=== PATIENT | female | born 1955 | race Caucasian/White ===

== ENCOUNTER → 2021-03-25 13:11 | Outpatient (CLI) | payer OTHER, SELFPAY ==
--- NOTE | 2021-03-25 13:13 | MRI_ITS ---
MR Pelvis Female WO/W Contrast 03/25/2021 1:57 PM COMPARISON: None CLINICAL HISTORY: recurrent ovarian cancer, eval extent of disease, ? RECTAL INVASION FROM MASS; hx prior hysterectomy TECHNIQUE: Multiplanar T1 and T2 weighted, and dynamic post-gadolinium images were obtained through the pelvis. 15 cc of IV Dotarem was given. FINDINGS: Bladder: Unremarkable Reproductive organs: Status post hysterectomy and bilateral salpingo-oophorectomy. In the right adnexa there is infiltrating and enhancing soft tissue measuring approximately 4.4 x 3.1 cm. The mass is contiguous with the vaginal stump and invades the right lateral wall of the rectum. Lymphadenopathy: Absent Ascites: Absent Bones: There is distention of the symphysis pubis joint due to 3.3 x 2.5 cm rim-enhancing fluid collection. There are erosive changes of the symphysis pubis. MRI/Pelvis W/WO Contrast IMPRESSION: Findings concerning for recurrent right ovarian cancer with slight local invasion of the right lateral rectal wall. No suspicious lymphadenopathy. 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 Electronically Signed: Joseph Serrano MD at 17:28 EST Tel , Service support ,
[2021-03-25 13:50] LABS: CREATININE FINGERSTICK 1.2 mg/dL (0.55-1.02)
[2021-03-29 12:46] LABS: Creatinine, Serum 0.98 mg/dL (0.55-1.02); EST Glomerular Filtration Rate 61 mL/min (>60); Est Glom Filt Rate - Afr Amer 74 mL/min (>60)
== END ==
PROVIDERS: Referring Provider Student in an Organized Health Care Education/Training Program; Visit Provider Student in an Organized Health Care Education/Training Program
DX: C56.9 Malignant neoplasm of unspecified ovary (principal)
CPT/HCPCS: 72197; 82565; A9575; A4216

== ENCOUNTER 2021-04-02 09:00 | Outpatient (CLI) | payer OTHER, SELFPAY ==
[2021-04-02] VITALS (8 sets, daily range): BP systolic 113–184; BP diastolic 65–104; PULSE 68–86; RESP 14–22; TEMP 36.4; O2SAT 96–100; BMI 30.1
--- NOTE | 2021-04-02 | ASPIGT_PTH ---
PATIENT: ART MATAMOROS LOC: CT U#:[id number] AGE/SX: 65/F ROOM: RE04/02/[address]: Dr. Nas Sánchez DO : 1955 BED: DIS: 04/02/2021 SPEC #: [id number] RECD: 04/02/21 11:31 STATUS: ANANYA KODI #: [id number] KESHAWN: 04/02/21 00:[address]: Nas Sánchez DEPT: SURGICAL PATHOLOGY RECD BY: Beth Stafford ENTERED: 04/02/21 11:31 SP TYPE: ASP RAD OT DR: No Primary Care Phys Tissues: Pelvis, NOS Procedures: FNA Specimen Adequacy Special Stain Group II Surgery Specimen Level IV Imprint (control) HEADER OPERATION: CT-guided sampling of pubic symphysis PRE-OP DIAGNOSIS: Abnormal MRI of pelvis TISSUE SUBMITTED: Pubic symphysis 18-gauge core x6 MICROSCOPIC DIAGNOSIS Soft tissue of pubic symphysis, biopsy: Benign fibrocollagenous tissue. See comment. AM:go 04/05/2021 COMMENT The specimen is evaluated at the time of biopsy by Dr. Phillips. Immediate Evaluation = Negative for malignant cells. Immunohistochemistry ([id number]) supports the above diagnosis. This case was discussed with Princses Galeano 04/05/[address] Starr. Case has been reviewed in consultation with Dr. Phillips who concurs with the above diagnosis. IDC:[email or web address] MICROSCOPIC DESCRIPTION Slides are reviewed. GROSS DESCRIPTION Received in fixative is one container labeled with the patient's name and designated pubic symphysis. The specimen consists of multiple irregular fragments of zelaya soft tissue that in aggregate measure 1.5 x 0.2 x 0.1 cm. The specimen is totally submitted in one cassette. Two touch imprints are prepared at the time of core biopsy. / BRIJESH:go 04/02/2021 TC:5 CPT: 64291, 80645
--- NOTE | 2021-04-02 | IMM_PTH ---
PATIENT: ART MATAMOROS LOC: CT U#:[id number] AGE/SX: 65/F ROOM: RE04/02/[address]: Dr. Nas Sánchez DO : 1955 BED: DIS: 04/02/2021 SPEC #: [id number] RECD: 04/05/21 12:38 STATUS: ANANYA REQ #: [id number] KESHAWN: 04/02/21 00:[address]: Nas Sánchez DEPT: IMMUNOHISTOCHEMISTRY RECD BY: Rivka Fontanez ENTERED: 04/05/21 12:39 SP TYPE: IMMUNO OTHR DR: No Primary Care Phys Tissues: Symphysis pubis Procedures: SMA (add) CA-125 (add) Ki Ret (add) CD31 (add) CD34 (add) CEA (add) DESMIN (add) RODRÍGUEZ (add) MACRO (add) Vimentin (add) SMM (add) FACTOR VIII (add) NEUROFIL (add) Pankeratin (initial) MELAN-A (add) S-100 (add) PHYSICIAN & INSTITUTION [address] [address] SPECIMEN INFORMATION: Tissue Source: Pubic symphysis Clinical Info: Abnormal MRI of pelvis Specimen Number: [id number] CPT code: 15481, 51338 x15 METHODOLOGY: Deparaffinized sections of prefer/formalin-fixed tissue or PAP/DQ stained slides are incubated with monoclonal/polyclonal antibodies/oligonucleotide probes. Localization is made via biotin free immunoperoxidase method. Appropriate controls are performed and reacted as expected. Results on target cell population are indicated in the following table: RESULTS: ANTIBODY / CLONE RESULT AE1-3 (AE1/AE3/PCK26) negative Vimentin (V9) positive CD31 (DORA/70A) negative Factor VIII (R Ag) negative CD34 (QBEnd-10) negative Macro (HAM-56) negative Actin (1A4) negative Myosin (simms1) negative Desmin (CE-R-11) negative Melan A (A103) negative S-100 (4C4.9) negative Neurofil (2F11) negative CALRET (polyclonal) negative RODRÍGUEZ (E29) negative CEA (11-7/TF-3HB-1) negative CA125 (OC125) negative These tests were developed and their performance characteristics determined by [facility]. They may not have been cleared or approved by the U.[place]. Food and Drug Administration. The FDA has determined that such clearance or approval is not necessary. The above immunohistochemical/dualISH markers are ordered and reviewed by the Pathologist. INTERPRETATION: Pubic symphysis, CT-guided core biopsy: Benign fibrocollagenous tissue. No evidence of carcinoma. AM:go 04/06/2021
--- NOTE | 2021-04-02 09:05 | CT_ITS ---
PROCEDURE: CT GUIDED biopsy of the symphysis pubis. DATE: 04/02/2021. INDICATION: Female, 65 years old. Lytic lesion in the symphysis. PHYSICIAN: Seven Wade M.D. RADIATION DOSAGE (If Supplied By Facility): CTDIvol = ( 13 ) mGy, DLP = ( 410.51 ) mGycm. Individualized dose acquisition techniques were utilized. PROCEDURE: The risks, benefits, and alternatives to the procedure were explained to the patient. The specific risk of hemorrhage requiring further treatment or intervention was detailed and accepted. Follow-up instructions were discussed with the patient as well. Written informed consent was obtained. The patient was brought into the CT suite and placed in the supine position. The abnormality in the symphysis pubis was identified.. An appropriate entry site was identified. The overlying skin was prepped and draped in the usual sterile fashion. 1% lidocaine was administered subcutaneously for local anesthesia. Conscious sedation was performed. The patient received 3 mg of VERSED and 75 mcg of FENTANYL intravenously. The patient was independently monitored by the department nurse. Conscious sedation was started on 10:19 AM and terminated at 10:[address] guidance, a total of 6 passes were performed utilizing an 18-gauge core biopsy needle system. The specimens were then placed in the appropriate fluid and transported to the laboratory for analysis. Hemostasis was obtained. The patient tolerated the procedure well without immediate complications. Conscious sedation protocol was followed. CT/Biopsy/Inj or Needle Placement IMPRESSION: Successful CT guided biopsy of the symphysis pubis., as described above. Conscious sedation protocol was followed. Electronically Signed: Seven Wade MD at 11:15 EST , Service support ,
[2021-04-02 09:38] LABS: Platelet Count 392 K/mm3 (150-450)
[2021-04-02 09:49] LABS: International Normalized Ratio 0.9; Prothrombin Time (Protime)PT. 11.8 SECONDS (11.7-14.9)
[2021-04-02 09:50] LABS: Partial Thromboplast Time 32.9 Seconds (24.1-36.2)
[2021-04-02] MEDS: Midazolam 2 MG/2 ML Syringe IV ×2 (10:19→10:38)
[2021-04-02] MEDS: fentaNYL 100 MCG/2 ML Ampul IV ×2 (10:19→10:38)
[2021-04-02] MEDS: Lidocaine 2% (20 ml mdv) 20 ML Vial INFILT (10:25)
== END 2021-04-02 23:59 | disposition home or self-care (01) ==
LOC: CT 09:03
PROVIDERS: Referring Provider Student in an Organized Health Care Education/Training Program; Visit Provider Student in an Organized Health Care Education/Training Program
DX: D16.8 Benign neoplasm of pelvic bones, sacrum and coccyx (principal); I10 Essential (primary) hypertension; Z79.899 Other long term (current) drug therapy
CPT/HCPCS: 20206; 36415; 77012; 85049; 85610; 85730; 88172; 88305; 88313; 88341; 88342; 99156; J7040; A4216

== ENCOUNTER → 2024-02-15 | Outpatient (CLI) | payer MEDICARE, OTHER, SELFPAY ==
--- NOTE | 2024-02-15 14:41 | CT_ITS ---
STUDY: CT CHEST, ABDOMEN T PELVIS WITH CONTRAST REASON FOR EXAM: Female, 68 years old. Known ovarian cancer, restaging RADIATION DOSAGE (If Supplied By Facility): CTDIvol = ( 12.30 ) mGy, DLP = ( 1058.99 ) mGycm TECHNIQUE: Transaxial imaging was performed following intravenous administration of Oral and amp; IV Readi-CAT and amp; 100mL Isovue-300. Oral contrast also administered. Multiplanar coronal and sagittal images were reformatted. Individualized dose optimization techniques were used for this CT. COMPARISON: 11/26/2022 FINDINGS: CHEST Lung windows show the lungs to be normally expanded. The previously described noncalcified nodular densities in both lung melgar still persist and now there are many more new suspicious noncalcified nodules scattered throughout both lung melgar too numerous to count. This is consistent with progression/worsening of lung metastasis. The largest noncalcified nodule is in the right cardiophrenic angle measuring 3.9 x 4.7 cm increased from 1 cm on the previous study. Soft tissue windows show the heart size to be normal, there are calcified coronary vessels. A right subclavian port tip is in the distal SVC. In addition to the progression of the pulmonary nodules, there is also been a significant worsening of mediastinal lymph nodes. There are now multiple suspicious bulky lymph nodes largest is in the AP window projecting anterior to the trachea and posterior to the descending aorta. This bulky soft tissue mass measures 5.03 x 3.70 cm not present on the previous study. There are also new perihilar lymph nodes measuring up to 1.2 cm in short axis dimension. Degenerative bony changes again noted with stable sclerotic metastasis noted in the T12, T11, T8 and T5 vertebral bodies. A previously noted retrocardiac hiatal hernia has increased in size and there is likely associated lymphadenopathy along the left lateral aspect of the hiatal hernia. ABDOMEN Liver also demonstrates suspicious peripherally enhancing lesions suggestive of metastasis that were not present on the previous study. The largest is in the right lobe measuring approximately 3.5 x 3.1 cm on axial image 98. Normal gallbladder and extrahepatic biliary system. Normal spleen. Normal pancreas. Normal bilateral adrenal glands. The right kidney is again noted to be atrophic and contains a JJ stent. Left kidney is free of obstructive uropathy or suspicious solid renal lesion The body and distal stomach are unremarkable. Small bowel loops are unremarkable, there is retained stool noted in the colon, there is nonspecific thickening of the distal sigmoid and rectal area likely due to previous radiation therapy. There is diffuse atherosclerotic calcification of the abdominal aorta, without a demonstrated aneurysm. Normal inferior vena cava. Normal retroperitoneum. Induration of the anterior subcutaneous fat within the pelvis consistent with postsurgical change. There is also induration of the pelvic fat and diffuse bladder wall thickening which I suspect is also likely due to previous radiation therapy. Projecting between the inferior bladder and the rectum is a well-defined thick-walled fluid collection containing air suspicious for abscess measuring 1.4 x 2.2 x 2.0 cm best seen on axial image 91 and coronal recon image 65. There are diffuse degenerative changes of the visualized lumbar spine, and pelvis. PELVIS There is no pelvic lymphadenopathy There is diffuse atherosclerotic calcification of the pelvic arteries. CT/CT Chest, Abd, Pel w/Contrast IMPRESSION: Progression/worsening of diffuse pulmonary metastasis. Previously described noncalcified nodular densities have either changed or become larger since the previous study and there is significant increase in noncalcified nodular densities scattered in both lung melgar. Progression/worsening of mediastinal and hilar adenopathy since the previous study Previously noted retrocardiac hiatal hernia is increased in size, I suspect there is also some new adenopathy in the GE junction region New suspicious enhancing lesion within the right lobe of consistent with metastasis. No free intraperitoneal fluid, air, or suspicious mesenteric or retroperitoneal adenopathy Stable atrophy of the right kidney which contains a JJ stent Induration of the pelvic fat and subcutaneous fat within the anterior pelvis likely due to previous surgery and radiation therapy Diffuse thickening of the bladder also likely due to previous radiation therapy. Well-defined thick-walled fluid collection projecting between the inferior bladder and rectum containing air suspicious for pelvic abscess. Surgical consultation recommended Nonspecific thickening of the distal sigmoid colon and proximal rectum also likely due to previous radiation therapy Degenerative bony changes with sclerotic changes in the thoracic spine suspicious for metastasis. No suspicious new sclerotic or erosive lesion within the lumbar spine or pelvis Stable degenerative changes in the symphysis pubis Electronically Signed: Colin Lagos MD at 9:35 EST ,
[2024-02-15] MEDS: 0.9 % NaCl (Sterile) Posiflush 10 mL IV (15:26)
== END | disposition home or self-care (01) ==
LOC: CT 14:37
PROVIDERS: Referring Provider Nurse Practitioner Family; Visit Provider Nurse Practitioner Family
DX: C56.9 Malignant neoplasm of unspecified ovary (principal); C78.6 Secondary malignant neoplasm of retroperitoneum and peritoneum; C78.01 Secondary malignant neoplasm of right lung; C78.02 Secondary malignant neoplasm of left lung; C79.51 Secondary malignant neoplasm of bone
CPT/HCPCS: 71260; 74177; Q9967; A4216

== ENCOUNTER 2024-07-10 12:59 | Outpatient (CLI) | payer MEDICARE, OTHER, SELFPAY ==
[2024-07-10] MEDS: 0.9% Normal Saline (1000mL) 1,000 ML 999 ML IV (13:24)
[2024-07-10 13:28] VITALS: BP 94/56; PULSE 98; RESP 16; TEMP 36.1; O2SAT 99
[2024-07-10 13:47] LABS: Absolute Lymphocyte Count 0.38 X10^3/uL (0.83-4.51); Basophil# 0.02 X10^3/uL; Basophil% 0.2 % (0-1); Eosinophil# 0.24 X10^3/uL; Eosinophils% 2.6 % (0-5); Hematocrit 26.7 % (37-47); Lymphocyte # 0.38 X10^3/ul (0.83-4.51); Mean Corp Hgb Conc 33.7 g/dL (32-36); Mean Corpuscular Hgb 33.8 pg (27.0-32.0); Mean Corpuscular Volume 100.4 fL (81-99); Mean Platelet Vol. 9.1 fl (6.2-12.0); Monocyte# 0.53 X10^3/uL; Monocyte% 5.6 % (0-10); NRBC Flagged by Analyzer 0.2 % (0-5); Neutrophil % 85.2 % (47-70); POSITIVE DIFFERENTIAL YES; POSITIVE MORPHOLOGY YES; Platelet Count 341 K/mm3 (150-450); RBC Distribution Width CV 18.9 % (11.6-14.6); RBC Distribution Width SD 68.5 fl (35.1-43.9); Red Blood Count 2.66 M/mm3 (4.2-5.4); White Blood Count 9.4 K/mm3 (4.4-11.0)
[2024-07-10 13:50] LABS: Differential Indicated SCAN CRITERIA MET
[2024-07-10 14:18] LABS: Anion Gap 11 (5-15); BUN 22 mg/dL (4-19); Calcium,Total 9.3 mg/dL (7.6-11.0); Carbon Dioxide 21.9 mmol/L (21.0-32.0); Chloride 97 mmol/L (98-108); Creatinine, Serum 0.78 mg/dL (0.70-1.20); EST Glomerular Filtration Rate 83 (>60); Glucose 146 mg/dL (70-99); Sodium Level 130 mmol/L (133-145)
[2024-07-10 14:32] VITALS: BP 97/60; PULSE 73; RESP 16; TEMP 36.2; O2SAT 94
[2024-07-10 14:46] LABS: Anisocytosis 1+
== END 2024-07-10 23:59 | disposition home or self-care (01) ==
DX: C56.2 Malignant neoplasm of left ovary (principal)
CPT/HCPCS: 96360; 36415; 36591; 80048; 85025; A4216

== ENCOUNTER 2024-07-17 13:42 | Outpatient (CLI) | payer MEDICARE, OTHER, SELFPAY ==
[2024-07-17] MEDS: 0.9% Normal Saline (1000mL) 1,000 ML 999 ML IV (14:03)
[2024-07-17 14:05] VITALS: BP 95/59; PULSE 102; RESP 16; TEMP 36.1; O2SAT 100; BMI 26.3
[2024-07-17 14:16] LABS: Absolute Lymphocyte Count 0.39 X10^3/uL (0.83-4.51); Absolute Neutrophil Count 7.4 X10^3/uL (2.0-7.7); Basophil# 0.03 X10^3/uL; Basophil% 0.3 % (0-1); Eosinophil# 0.17 X10^3/uL; Eosinophils% 1.9 % (0-5); Hematocrit 26.7 % (37-47); Hemoglobin 8.7 g/dL (12.0-15.0); Lymphocyte # 0.39 X10^3/ul (0.83-4.51); Lymphocyte % 4.4 % (19-41); Mean Corp Hgb Conc 32.6 g/dL (32-36); Mean Corpuscular Hgb 33.6 pg (27.0-32.0); Mean Corpuscular Volume 103.1 fL (81-99); Mean Platelet Vol. 8.7 fl (6.2-12.0); Monocyte# 0.76 X10^3/uL; Monocyte% 8.6 % (0-10); NRBC Flagged by Analyzer 0 % (0-5); Neutrophil # 7.38 X10^3/uL (2.7-7.7); Neutrophil % 83.8 % (47-70); POSITIVE DIFFERENTIAL YES; POSITIVE MORPHOLOGY YES; Platelet Count 431 K/mm3 (150-450); RBC Distribution Width CV 19.8 % (11.6-14.6); RBC Distribution Width SD 73.7 fl (35.1-43.9); Red Blood Count 2.59 M/mm3 (4.2-5.4); White Blood Count 8.8 K/mm3 (4.4-11.0)
[2024-07-17 14:17] LABS: Differential Indicated SCAN CRITERIA MET
[2024-07-17 14:38] LABS: Anion Gap 12 (5-15); BUN 20 mg/dL (4-19); BUN/Creat Ratio 29.4 RATIO (10-20); Calcium,Total 9.2 mg/dL (7.6-11.0); Carbon Dioxide 19.7 mmol/L (21.0-32.0); Chloride 102 mmol/L (98-108); Creatinine, Serum 0.67 mg/dL (0.70-1.20); EST Glomerular Filtration Rate 95 (>60); Glucose 112 mg/dL (70-99); Potassium 4.5 mmol/L (3.3-5.1); Sodium Level 133 mmol/L (133-145)
[2024-07-17 14:53] LABS: Anisocytosis 1+
[2024-07-17 14:54] LABS: Polychromasia RARE
[2024-07-17 15:20] VITALS: BP 100/60; PULSE 68; RESP 16; TEMP 36.4; O2SAT 96
[2024-07-17 23:37] LABS: Xtra Tube EP Lab EXTRA TUBE
[2024-07-19 11:29] LABS: AST(SGOT) 15 U/L (<=31); Alanine Aminotransfer ALT/SGPT 9 U/L (<=34); Albumin, Serum 3.4 g/dL (3.4-4.8); Alkaline Phosphatase 99 U/L (35-104); Globulin 2.4 g/dL (2.2-4.2); Protein, Total 5.8 g/dL (5.9-8.4); Total Bilirubin 0.16 mg/dL (0.00-1.30)
== END 2024-07-17 23:59 | disposition home or self-care (01) ==
LOC: MEDOUTP 13:42
DX: C56.2 Malignant neoplasm of left ovary (principal); Z45.2 Encounter for adjustment and management of vascular access device
CPT/HCPCS: 96360; 80048; 80076; 85025; 96523; A4216

== ENCOUNTER 2024-07-31 10:34 | Outpatient (CLI) | payer MEDICARE, OTHER, SELFPAY ==
[2024-07-31] MEDS: 0.9% Normal Saline (1000mL) 1,000 ML 999 ML IV (10:44)
[2024-07-31 10:50] VITALS: BP 96/57; PULSE 53; RESP 14; TEMP 36.1; O2SAT 97; BMI 27.1
[2024-07-31] MEDS: 0.9% NaCl Peripheral Flush Adult IV (11:58)
[2024-07-31 12:01] VITALS: BP 94/55; PULSE 90; RESP 16
== END 2024-07-31 23:59 | disposition home or self-care (01) ==
LOC: MEDOUTP 10:35
DX: C56.9 Malignant neoplasm of unspecified ovary (principal)
CPT/HCPCS: 96360; A4216

== ENCOUNTER 2024-08-07 12:34 | Outpatient (CLI) | payer MEDICARE, OTHER, SELFPAY ==
[2024-08-07] MEDS: 0.9 % NaCl (Sterile) Posiflush 10 mL IV (12:41)
[2024-08-07] MEDS: 0.9% Normal Saline (1000mL) 1,000 ML 999 ML IV (12:46)
[2024-08-07 12:49] VITALS: BP 129/71; PULSE 92; RESP 16; TEMP 36.6; O2SAT 99; BMI 27.1
[2024-08-07] MEDS: 0.9% NaCl VAD Flush IV (13:53)
[2024-08-07 13:54] VITALS: BP 103/66; PULSE 89; RESP 16
== END 2024-08-07 23:59 | disposition home or self-care (01) ==
LOC: MEDOUTP 12:35
DX: C56.9 Malignant neoplasm of unspecified ovary (principal)
CPT/HCPCS: 96360; A4216

== ENCOUNTER 2024-08-21 12:53 | Outpatient (CLI) | payer MEDICARE, OTHER, SELFPAY ==
[2024-08-21] MEDS: 0.9 % NaCl (Sterile) Posiflush 10 mL IV (13:15)
[2024-08-21] MEDS: 0.9% Normal Saline (1000mL) 1,000 ML 1000 ML IV (13:20)
[2024-08-21 13:23] VITALS: BP 89/53; PULSE 93; RESP 16; TEMP 36.3; O2SAT 100; BMI 26.2
[2024-08-21] MEDS: 0.9% NaCl VAD Flush IV (14:26)
[2024-08-21 14:29] VITALS: BP 98/68; PULSE 93; RESP 16
== END 2024-08-21 23:59 | disposition home or self-care (01) ==
LOC: MEDOUTP 12:53
DX: C56.9 Malignant neoplasm of unspecified ovary (principal)
CPT/HCPCS: 96360; A4216

== ENCOUNTER 2024-08-28 12:57 | Outpatient (CLI) | payer MEDICARE, OTHER, SELFPAY ==
[2024-08-28] MEDS: 0.9% Normal Saline (1000mL) 1,000 ML 999 ML IV (13:12)
[2024-08-28] MEDS: 0.9 % NaCl (Sterile) Posiflush 10 mL IV (13:12)
[2024-08-28 13:13] VITALS: BP 103/54; PULSE 99; RESP 16; TEMP 36.1; O2SAT 99; BMI 26.3
[2024-08-28] MEDS: 0.9% NaCl VAD Flush IV (14:20)
[2024-08-28 14:26] VITALS: BP 108/63; PULSE 90; RESP 16; TEMP 36; O2SAT 99
== END 2024-08-28 23:59 | disposition home or self-care (01) ==
LOC: MEDOUTP 12:57
DX: C56.9 Malignant neoplasm of unspecified ovary (principal)
CPT/HCPCS: 96360; A4216

== ENCOUNTER 2024-09-11 12:42 | Outpatient (CLI) | payer MEDICARE, OTHER, SELFPAY ==
[2024-09-11] MEDS: 0.9 % NaCl (Sterile) Posiflush 10 mL IV (13:01)
[2024-09-11] MEDS: 0.9% Normal Saline (1000mL) 1,000 ML 1000 ML IV (13:03)
[2024-09-11 13:05] VITALS: BP 90/52; PULSE 94; RESP 16; TEMP 35.6; O2SAT 99
[2024-09-11] MEDS: 0.9% NaCl VAD Flush IV (14:11)
[2024-09-11 14:12] VITALS: BP 94/56; PULSE 87; RESP 16; TEMP 35.7; O2SAT 98
== END 2024-09-11 23:59 | disposition home or self-care (01) ==
LOC: MEDOUTP 12:43
DX: C56.9 Malignant neoplasm of unspecified ovary (principal)
CPT/HCPCS: 96360; A4216

== ENCOUNTER 2024-09-18 13:32 | Outpatient (CLI) | payer MEDICARE, OTHER, SELFPAY ==
[2024-09-18 13:45] VITALS: BP 129/68; PULSE 94; RESP 16; TEMP 35.6; O2SAT 100
[2024-09-18] MEDS: 0.9% Normal Saline (1000mL) 1,000 ML 999 ML IV (13:45)
[2024-09-18 15:00] VITALS: BP 139/78; PULSE 93; RESP 16; TEMP 35.7; O2SAT 95
== END 2024-09-18 23:59 | disposition home or self-care (01) ==
LOC: MEDOUTP 13:32
DX: C56.9 Malignant neoplasm of unspecified ovary (principal)
CPT/HCPCS: 96360; A4216

== ENCOUNTER 2024-10-02 10:28 | Outpatient (CLI) | payer MEDICARE, OTHER, SELFPAY ==
[2024-10-02] MEDS: 0.9% Normal Saline (1000mL) 1,000 ML 999 ML IV (11:04)
[2024-10-02 11:11] VITALS: BP 118/71; PULSE 95; RESP 16; TEMP 36.2; O2SAT 98; BMI 27.1
[2024-10-02 11:15] LABS: Hematocrit 27.2 % (37-47); Hemoglobin 8.9 g/dL (12.0-15.0); Immature Granulocytes Count 0.120 X10^3/uL (0.0-0.0); Mean Corp Hgb Conc 32.7 g/dL (32-36); Mean Corpuscular Volume 96.5 fL (81-99); Mean Platelet Vol. 9.4 fl (6.2-12.0); NRBC Flagged by Analyzer 0.2 % (0-5); POSITIVE DIFFERENTIAL YES; Platelet Count 351 K/mm3 (150-450); RBC Distribution Width CV 17.5 % (11.6-14.6); RBC Distribution Width SD 61.1 fl (35.1-43.9); Red Blood Count 2.82 M/mm3 (4.2-5.4); White Blood Count 8.8 K/mm3 (4.4-11.0)
[2024-10-02 12:17] VITALS: BP 138/75; PULSE 95; RESP 16; O2SAT 98
[2024-10-02 12:28] LABS: AST(SGOT) 19 U/L (<=31); Alanine Aminotransfer ALT/SGPT 11 U/L (<=34); Albumin, Serum 3.3 g/dL (3.4-4.8); Alkaline Phosphatase 123 U/L (35-104); Anion Gap 11 (5-15); BUN 16 mg/dL (4-19); BUN/Creat Ratio 25.0 RATIO (10-20); Calcium,Total 9.1 mg/dL (7.6-11.0); Carbon Dioxide 22.6 mmol/L (21.0-32.0); Chloride 99 mmol/L (98-108); Estimated Creatinine Clearance 60.47 ml/min (50-250); Globulin 2.8 g/dL (2.2-4.2); Glucose 116 mg/dL (70-99); Potassium 3.8 mmol/L (3.3-5.1)
[2024-10-02 19:09] LABS: Xtra Tube EP Lab EXTRA TUBE
== END 2024-10-02 23:59 | disposition home or self-care (01) ==
DX: C56.9 Malignant neoplasm of unspecified ovary (principal); Z79.899 Other long term (current) drug therapy
CPT/HCPCS: 96360; 36591; 80053; 85025; A4216

== ENCOUNTER 2024-10-09 11:50 | Outpatient (CLI) | payer MEDICARE, OTHER, SELFPAY ==
[2024-10-09] MEDS: 0.9% Normal Saline (1000mL) 1,000 ML 999 ML IV (12:22)
[2024-10-09 12:23] VITALS: BP 125/70; PULSE 94; RESP 16; TEMP 35.6
[2024-10-09 13:28] VITALS: BP 142/77; PULSE 92
== END 2024-10-09 23:59 | disposition home or self-care (01) ==
LOC: MEDOUTP 11:51
DX: C56.9 Malignant neoplasm of unspecified ovary (principal)
CPT/HCPCS: 96360; A4216